=== PATIENT | male | born 1990 | race American Indian/Alaskan Native ===

== ENCOUNTER 2017-08-01 22:20 | Emergency (ER) | payer OTHER ==
[2017-08-01 22:50] VITALS: BP 139/61; RESP 18; O2SAT 98
--- NOTE | 2017-08-01 23:02 | ED PDOC ---
Arrival/HPI - General Chief Complaint: Medical Clearance Time Seen by Provider: 08/01/17 22:34 Historian: Patient - History of Present Illness Narrative History of Present Illness (Text): 08/01/17 23:00 27yr old male presents today for wound check to left thigh wound. pt had lymph node biopsy 2 days ago. pt denies pain, denies fever/chills. pt states he noticed that part of the glue came undone and he was worried that the wound is opening. pt denies discharge from wound. denies redness or swelling. no other complaints. Past Medical History - Provider Review Nursing Documentation Reviewed: Yes - Travel History Have you recently traveled outside [place] w/in the past 3 mons?: No - Infectious Disease Hx of Infectious Diseases: None - Psychiatric Hx Substance Use: No - Surgical History Other/Comment: Lymph nodes removed from left groin. - Anesthesia Hx Anesthesia: Yes Hx Anesthesia Reactions: No Hx Malignant Hyperthermia: No Family/Social History - Physician Review Nursing Documentation Reviewed: Yes Family/Social History: Unknown Family HX Smoking Status: Never Smoked Hx Alcohol Use: Yes Frequency of alcohol use: Socially Hx Substance Use: No Allergies/Home Meds Allergies/Adverse Reactions: Allergies No Known Allergies Allergy (Verified 08/01/17 22:50) Home Medications: Home Meds Medication Instructions Recorded Confirmed No Known Home Med 08/01/17 08/01/17 Review of Systems - Review of Systems Constitutional: absent: Fatigue, Fevers Respiratory: absent: SOB, Cough Cardiovascular: absent: Chest Pain, Palpitations Genitourinary Male: absent: Dysuria Musculoskeletal: absent: Arthralgias Skin: Other (skin wound) Neurological: absent: Headache, Dizziness Psychiatric: absent: Anxiety, Depression, Suicidal Ideation Physical Exam Vital Signs Reviewed: Yes Vital Signs Temp Pulse Resp BP Pulse Ox 08/01/17 22:49 98.7 F 88 18 139/61 98 Temperature: Afebrile Blood Pressure: Normal Pulse: Regular Respiratory Rate: Normal Appearance: Positive for: Well-Appearing, Non-Toxic, Comfortable Pain Distress: None Mental Status: Positive for: Alert and Oriented X 3 - Systems Exam Head: Present: Atraumatic Respiratory/Chest: Present: Clear to Auscultation Cardiovascular: Present: Regular Rate and Rhythm Lower Extremity: Present: Edema (chronic left leg edema. ), Normal ROM Neurological: Present: GCS=15, Speech Normal Skin: Present: Warm, Dry, Normal Color, Other (horizontal linear wound noted with dermabond in place; small area of superficial dehiscence without tenderness , erythema, warmth, or discharge. ) Psychiatric: Present: Alert, Oriented x 3 Medical Decision Making ED Course and Treatment: 08/01/17 23:07 27yr old male presents today for wound check of surgical incision for lymph node biopsy 2 days ago. small area of superficial wound dehiscence without signs of infection. Erythema no edema no ecchymosis no tenderness no purulent discharge Steri-Strip was applied. pt was seen and evaluated by dr. hernadez. I along in depth conversation with the patient about Dermabond and Steri-Strips and signs of infection. Advised immediate return if any signs of infection develop. Advised follow-up with the surgeon within the next 2 days. Advised immediate return if any other concerning symptoms develop Patient verbalizes understanding of discharge instructions and need for immediate followup. impression; wound check keep wound clean and dry follow up with the surgeon within the next 2 days. return immediately if signs of infection develop; high fevers, increasing pain, redness, swelling or if any purulent discharge develops. Disposition/Present on Arrival - Present on Arrival Any Indicators Present on Arrival: No History of DVT/PE: No History of Uncontrolled Diabetes: No Urinary Catheter: No History of Decub. Ulcer: No History Surgical Site Infection Following: None - Disposition Have Diagnosis and Disposition been Completed?: Yes Diagnosis: Visit for wound check Disposition: HOME/ ROUTINE Disposition Time: 22:59 Patient Plan: Discharge Patient Problems: Current Active Problems Problem Status Onset Visit for wound check Acute Condition: GOOD Additional Instructions: keep wound clean and dry follow up with the surgeon within the next 2 days. return immediately if signs of infection develop; high fevers, increasing pain, redness, swelling or if any purulent discharge develops. Referrals: PCP,NO [Primary Care Provider] - Follow up with primary Ever Sheehan MD [Staff Provider] - Follow up with primary Amanda Mike MD [Staff Provider] - Follow up with primary
[2017-08-01 23:09] VITALS: PULSE 86; TEMP 98.8
== END 2017-08-01 23:05 | disposition home or self-care (01) ==
LOC: ED 22:20
DX: Z48.89 Encounter for other specified surgical aftercare (principal)